=== PATIENT | male | born 1945 | race Caucasian/White ===

== ENCOUNTER 2019-11-06 06:54 | Day surgery (SDC) | payer MEDICARE, SELFPAY ==
[2019-11-03 14:47] VITALS: BMI 25.1
[2019-11-05 11:40] VITALS: BMI 25.1
--- NOTE | 2019-11-06 09:10 | CL.D_ITS ---
Patient Name: JESSICA KHAN Study Date: 11/06/2019 Performing: Noe Field MD Ht: 70.86 inches 180 cm : 1945 Wt: 180.78 lbs 82 kg Age: 74 Gender: male BSA: 2.02 PROCEDURE(S) PERFORMED ME19-ARD/COR/LV NB19-TTI, CORONARY OR GRAFT, INITIAL VESSEL CLINICAL PROFILE AND INDICATIONS Indications: Suspected CAD Heart Failure: None Stress/Imaging Date: 10/13/2019Stress Test with SPECT MPI: Negative CAD Presentations: Unstable angina. CONCLUSIONS Severe coronary calcification involving the left anterior descending artery, and right coronary arter y. There is moderately severe disease noted in the proximal left anterior descending artery and mini mal disease noted in the circumflex artery and an ectatic right coronary artery RECOMMENDATIONS Staged for FFR DESCRIPTION OF PROCEDURE The patient arrived to the procedure lab. The risks and benefits of the procedure as well as a full d escription of our services here and current unavailability of surgical backup were fully explained to the patient and/or their significant other prior to the catheterization. The Timeout was completed, verifying the correct patient and procedure. The patient's procedural site was prepped and draped in the usual fashion. Local anesthetic was given subcutaneously to right radial region with Lidocaine 2% . Local anesthetic was given subcutaneously to right groin region with Lidocaine 2%. Using a modified Seldinger technique, arterial access was obtained via the right radial artery, a 6Fr sheath was inse rted. Right Coronary Artery selective angiography was then performed in multiple views using a 5 Fr. 4.0 [place] catheter. Left Coronary Artery selective angiography was performed in multiple views using a 5 Fr. 4.0 [place] catheter. Left Ventriculography was performed in SANZ projection using a 5 Fr. Pigtail catheter. LV to AO pullback pressures were then recorded. CORONARY ANGIOGRAPHY DOMINANCE: Right Dominant LEFT HEART ASSESSMENT Left Ventricular Ejection Fraction: by LV Gram 60 % Normal LV wall motion Normal Left Ventricular systolic function LEFT MAIN: Mild calcification LEFT ANTERIOR DESCENDING ARTERY: PROX LAD: Moderate calcification, Diffusely diseased up to 70 % MID LAD: Long area of stenosis after the large diagonal branch and a tapering vessel to approximately 70% CIRCUMFLEX ARTERY: Mild luminal irregularities less than 30% RIGHT CORONARY ARTERY: Mild luminal irregularities less than 30% Ectatic COMPLICATIONS PROCEDURE MEDICATIONS Fentanyl 50 mcg IV Versed 1 mg IV Oxygen: 2 L/min via nasal cannula Heparin diluted in 23cc Heparinized saline. Patient given 5cc IA of this solution. 11/06/2019 08:37:43 Verapamil 2.5mg, Ntg 100mcgs, 2000 units of Heparin diluted in 23cc Heparinized saline. Patient give n 5cc IA of this solution. 11/06/2019 08:37:43 IV Fluids: .9 NaCl increased to WO ml/hr 11/06/2019 08:42:31 SUMMARY OF HEMODYNAMIC DATA Time AIR REST ECG 07:24:33 AO 77/53 (65) SA 08:39:41 LV 92/-5, 0 08:48:12 LV 85/-4, 0 08:48:18 LV 101/-12, 2 08:49:15 LVp 98/-13, 0 08:49:19 AOp 100/40 (63) 08:49:24 Signed By Noe Field MD On 11/06/2019 9:09:26 AM Noe Field MD
[2019-11-06 09:30] LABS: ACT Activated Clotting Time 235 sec (74-137)
[2019-11-06 12:01] LABS: ACT Activated Clotting Time 131 sec (74-137)
--- NOTE | 2019-11-06 12:06 | CL.I_ITS ---
Patient Name: JESSICA KHAN Study Date: 11/06/2019 Performing: Camilo Blanca MD Ht: 70.86 inches 180 cm : 1945 Wt: 180.78 lbs 82 kg Age: 74 Gender: male BSA: 2.02 PROCEDURE(S) PERFORMED [id number], CORONARY OR GRAFT, INITIAL VESSEL CLINICAL PROFILE AND CO-MORBIDITIES Indications: Suspected CAD, New Onset Angina <= 2 months, Suspected CAD, Other, coronary calcium score of 2000. Heart Failure: None Stress/Imaging Date: 10/13/2019 Stress Test with SPECT MPI: Negative Angina Classification Anginal Classification w/in 2 Weeks: Anginal Equivalent Dyspnea CAD Presentations: Unstable angina. Unstable angina. Comorbidities/Risk Factors: Hypertension Dyslipidemia CONCLUSIONS FFR eval with adenosine augmentation of proximal LAD=0.86; no PCI recommended or performed today. RECOMMENDATIONS Highly recommend quitting all tobacco products Follow up with primary rover tender Risk factor modification ASA Indefinitley Plavix for at least 12 months Routine post interventional care Refer for Outpatient Cardiac Rehab Manual sheath removal per protocol Manual sheath removal. Would consider PCI of proximal LAD if pt has ongoing dyspnea on exertion or worsening exercise capaci ty despite maximal medical therapy. D/w Dr Field and Cathleen Jefferson. Manual sheath removal of RFA and R radial once ACT<170. DESCRIPTION OF PROCEDURE The patient arrived to the procedure lab. The risks and benefits of the procedure as well as a full d escription of our services here and current unavailability of surgical backup were fully explained to the patient and/or their significant other prior to the catheterization. The Timeout was completed, verifying the correct patient and procedure. The patient's procedural site was prepped and draped in the usual fashion. Local anesthetic was given subcutaneously to right radial region with Lidocaine 2% . Local anesthetic was given subcutaneously to right groin region with Lidocaine 2% Using a modified Seldinger technique,arterial access was obtained via the right radial artery, a 6Fr sheath was insert ed., arterial access was obtained via the right femoral artery, a 6Fr sheath was inserted. Right Shania nary Artery selective angiography was then performed in multiple views using a 5 Fr. 4.0 [place] cathet er. Left Coronary Artery selective angiography was performed in multiple views using a 5 Fr. 4.0 [place] catheter. Left Ventriculography was performed in SANZ projection using a 5 Fr. Pigtail c atheter. LV to AO pullback pressures were then recorded.The images were reviewed and options discusse d. A decision was then made to proceed with an Intervention, IVUS or other adjunct procedure. EBU 3.5 Guide catheter was inserted and engaged into the LCA. The FFR/iFR wire was inserted. Philippe osine was then given per protocol. Pressures and FFR/iFR were then recorded. FFR Ratio Baseline: 1.0 FFR Ratio post Adenosine: 0.86 The FFR/iFR wire was then removed. The arterial sheath was pulled an d a TR Band was applied for hemostasis Air 11. The femoral arterial sheath was sutured in place and c apped INTERVENTION INFORMATION LESION SITE: LAD (Mid) Lesion Complexity: High/C, lesion at bifurcation: No, thrombus present: No, lesion length: 24 mm, cul prit lesion: Yes Pre Stenosis: 65 % Pre intervention SELVIN flow: 3 PROCEDURE: FFR Post Stenosis: 65 % Post intervention SELVIN flow: 3 Lesion Devices: [employer] ( [facility] [place]) Coronary FFR Wire [employer]ogg Mobiletronic 6 Fr EBU3.5 100cm Guide Catheter COMPLICATIONS No Complications PROCEDURE MEDICATIONS Fentanyl 50 mcg IV Versed 1 mg IV Oxygen: 2 L/min via nasal cannula Adenosine drip for FFR 23 ml IV @ 11/06/2019 09:17:33 Heparin diluted in 23cc Heparinized saline. Patient given 5cc IA of this solution. 11/06/2019 08:37:43 Heparin 6000 unit(s) IV 11/06/2019 09:07:30 Nitro 200 mcg IC 11/06/2019 09:10:38 Verapamil 2.5mg, Ntg 100mcgs, 2000 units of Heparin diluted in 23cc Heparinized saline. Patient give n 5cc IA of this solution. 11/06/2019 08:37:43 IV Fluids: .9 NaCl increased to WO ml/hr 11/06/2019 08:42:31 SUMMARY OF HEMODYNAMIC DATA Time AIR REST ECG 07:24:33 AO 77/53 (65) SA 08:39:41 LV 92/-5, 0 08:48:12 LV 85/-4, 0 08:48:18 LV 101/-12, 2 08:49:15 LVp 98/-13, 0 08:49:19 AOp 100/40 (63) 08:49:24 AO 103/51 (69) 09:10:03 AO 79/45 (60) 09:12:45 Signed By Camilo Blanca MD On 11/06/2019 12:05:28 Signed By Camilo Blanca MD On 11/06/2019 12:05:08 Camilo Blanca MD
[2019-11-06 15:30] VITALS: BP 101/61; PULSE 61; RESP 18; TEMP 36.4; O2SAT 96
[2019-11-06 16:30] VITALS: BP 99/50; PULSE 62; RESP 18; TEMP 36.5; O2SAT 98
[2019-11-06 18:18] VITALS: PULSE 59
--- NOTE | 2019-11-06 19:05 | NURSING ---
Pt ambulated in the [place] with this RN no bleeding to cath sites or signs of complications.
== END 2019-11-06 19:15 | disposition home or self-care (01) ==
LOC: CLSP 09:21 → PCU 11-07 10:43
PROVIDERS: Referring Provider Internal Medicine Cardiovascular Disease; Visit Provider Internal Medicine Cardiovascular Disease
DX: I25.110 Atherosclerotic heart disease of native coronary artery with unstable angina pectoris (principal); E11.9 Type 2 diabetes mellitus without complications; I10 Essential (primary) hypertension; E78.5 Hyperlipidemia, unspecified; E03.9 Hypothyroidism, unspecified; M10.9 Gout, unspecified; F32.9 Major depressive disorder, single episode, unspecified; F41.9 Anxiety disorder, unspecified; R93.1 Abnormal findings on diagnostic imaging of heart and coronary circulation; R94.31 Abnormal electrocardiogram [ECG] [EKG]; Z79.82 Long term (current) use of aspirin; Z79.899 Other long term (current) drug therapy; Z85.038 Personal history of other malignant neoplasm of large intestine
CPT/HCPCS: 85347; 93458; 93571; 99152; 99153; J0153; J7040; Q9967; C1769; C1887; C1894

== ENCOUNTER → 2020-06-03 08:52 | Outpatient (CLI) | payer MEDICARE, SELFPAY ==
[2020-05-25 11:44] VITALS: BMI 23.7
--- NOTE | 2020-06-03 17:20 | PCM.TILTTABL ---
- Staff Staff: Barbra Pedersen - Summary Pre Test Resting HR: 56 Pre Test Resting BP: 131/71 Minimum Test HR: 49 Maximum Test HR: 86 Minimum Test BP: 0/0 Maximum Test BP: 133/79 Physician Tilt Table Report - Patient's Physicians Primary Care Physician: ARACELI LARA Indications/Diagnosis: Recurrent presyncope Procedure Comments: The patient was brought to the noninvasive lab in the postabsorptive nonsedated state. The patient was placed on the tilt table and an EKG was obtained. The baseline heart rate was 56 bpm with a baseline blood pressure 131/71 mmHg. Vitals were noted to be stable and the appearance was normal. The patient was then placed in the 70 degree upright tilt position for 20 minutes. Continuous EKG monitoring as well as blood pressure and pulse recordings were undertaken. There were no changes in the patient's affect, color, and vitals. The patient was then placed back in the recumbent position and administered 0.4 mg of sublingual nitroglycerin. The patient was then placed in the head upright tilt position. After approximately 8 minutes the patient was noted to have started dropping his blood pressure as well as the heart rate. Blood pressure was then unrecordable with a heart rate dropping to 49 bpm with the patient being lightheaded, losing consciousness, and being clammy. He was immediately placed in the recumbent position given intravenous fluids. Patient recovered well. Postprocedure vitals were heart rate of 57 bpm blood pressure 123/67 mmHg. EKG demonstrated sinus bradycardia. Summary: Head upright tilt tested demonstrating likely vasodepressor syncope. Will recommend discontinuation of losartan at this time. Above discussed with patient. Liberalized fluid as well as support stockings.
[2020-06-03 17:25] VITALS: BP 0/0; BP 131/71; BP 133/79
== END ==
PROVIDERS: Referring Provider Internal Medicine Cardiovascular Disease; Visit Provider Internal Medicine Cardiovascular Disease
DX: R42 Dizziness and giddiness (principal)
CPT/HCPCS: 93660; J7040; A4216

== ENCOUNTER 2020-10-29 06:30 | Day surgery (SDC) | payer MEDICARE, SELFPAY ==
[2020-05-25 11:44] VITALS: BMI 23.7
--- NOTE | 2020-10-27 11:02 | PCM.HP.BLA ---
History and Physical Date of Admission: 10/29/20 Pleasant 75-year-old man with a history of diabetes mellitus, hyperlipidemia, and coronary artery disease. You do remember that he had been feeling unwell and was experiencing chest discomfort described as a heaviness with exertion he underwent a CT scan which demonstrated a calcium score of over 2000 and subsequently underwent a stress test which was normal at 10 metabolic equivalents. An echocardiogram previously performed in August 2019 was noted to be normal. He underwent a cardiac catheterization which demonstrated moderate disease in the proximal to mid left anterior descending artery. Fractional flow reserve was noted to be normal and therefore medical therapy was undertaken. He was put on a beta-rashmi as well as cholesterol medication. He did not tolerate either of these and both were discontinued. More recently, patient was out walking and noted new chest heaviness. This improved with rest. This did not radiate. This was not associated with shortness of breath, nausea, or diaphoresis. However, he acknowledges that this was the worst he has ever felt The following day he was walking his dog and noted bilateral arm numbness and that he could not walk as far given how he felt. He does acknowledge chest heaviness that comes and goes at rest as well. He continues to acknowledge dizziness with position changes. He denies any shortness of breath, presyncope, syncope, edema, claudication, orthopnea, PND, or cough He has been intolerant to statin medications previously. He is also intolerant to isosorbide, metoprolol, and lisinopril as well. His most recent lipid panel showed an LDL of 137, total cholesterol of 212, and HDL of 48. His most recent hemoglobin A1c was noted be 7.3%. Intake Intake Visit Reasons: [facility] Allergies cyclobenzaprine [From Flexeril] Allergy (Verified 05/25/20 10:30) unkown atorvastatin Adverse Reaction (Verified 05/25/20 10:30) myalgias, elevated A1C isosorbide Adverse Reaction (Verified 05/25/20 10:30) neuropathy lisinopril Adverse Reaction (Verified 05/25/20 10:30) neuropathy Vital Signs: See EMR Medications: See EMR Ejection fraction %: 55 to 59 [facility] Medical History (Updated 10/27/20 @ 10:25 by Smith Cosby C[facility] OCCUPATIONAL THERAPY ASST, CERT OCCUPATIONAL THERAPY ASST-C) Atherosclerosis of coronary artery of [place] heart without angina pectoris (Chronic) Hyperlipidemia (Chronic) Colon cancer (Resolved) Abnormal electrocardiogram (Chronic) Anxiety and depression (Chronic) Gout (Chronic) Hypogonadism in male (Chronic) Lumbar radiculopathy (Chronic) Type 2 diabetes mellitus (Chronic) Hypothyroidism (Resolved) Nephrolithiasis (Resolved) Essential (primary) hypertension (Ruled-out) Elevated coronary artery calcium score (Inactive) Surgical History History of appendectomy (Resolved 2003) History of back surgery (Resolved) History of colectomy (Resolved 2003) History of eye surgery (Resolved) History of left heart catheterization (Resolved 11/06/19) Family History Other Breast cancer Diabetes Social History (Updated 10/27/20 @ 10:27 by Smith Cosby NP, CERT OCCUPATIONAL THERAPY ASST-C) Smoking Status: Never smoker alcohol intake: never ROS Const Const: Positive for fatigue; negative for weakness, body ache, fever(s) or chills ENT ENT: Positive for dizziness Cardio Chest Pain: Yes Palpitations: No Edema: None Muscle aches with walking: None Resp Respiratory: Negative for SOB with activity, SOB at rest, SOB orthopnea\SOB lying down or paroxysmal nocturnal dyspnea GI GI: Negative nausea, vomiting blood/hematemesis, bright, red blood in stools or black,tarry stools : Negative for hematuria or frequent nighttime urination/ nocturia Musc Musc: Negative for muscle aches/ myalgia Skin Skin: Negative non-healing lesions or rash Neuro Neuro: Positive for dizziness; negative for lightheadedness, near syncope, syncope, orthostatic symptoms or weakness Endo Endo: Positive for fatigue Allergy Allergy/Immunology: Negative for rash Cardiology Exam Const Appearance: cooperative, healthy appearing, comfortable and no acute distress Nutritional Appearance: average body habitus and well nourished Orientation: alert, awake and oriented x3 Head Head: normal to inspection Ears: hearing grossly normal bilaterally Nose: external nose normal Face and Sinus: face symmetric Mouth: oral mucosae normal Eyes General: appearance normal, both eyes and all related structures Eyelids: eyelids normal EOM: EOM intact bilaterally Neck Neck: normal visual inspection and no JVD Carotids: normal carotid upstroke Chest Chest inspection: normal inspection of the chest, symmetric chest movement and normal respiratory effort; negative cough Auscultation: Bilateral: Clear to Auscultation Cardio Rate: regular rate Rhythm: regular rhythm Heart sounds: S1 normal and S2 normal; negative rub, gallop or murmur GI GI: normal to inspection Neuro General: alert, awake, oriented x3 and CN's II-XI intact bilaterally Skin Skin: no rashes or lesions noted Extremities Pulses: Normal: Right Posterior Tibial Pulse, Left Posterior Tibial Pulse, Right Radial Pulse, Left Radial Pulse Lower Extremity Edema: None: Bilateral Psych Psychological: normal affect Cardiology Exam Const Appearance: other (Deferred due to phone/virtual visit.) Assessment & Plan 1. Atherosclerosis of [place] coronary artery of [place] heart without angina pectoris I25.10 Plan Patient's heart catheterization in November 2019 showed proximal LAD and mid LAD with 70% stenosis. His FFR evaluation was noted be 0.86. Medical therapy was recommended. Patient symptoms are concerning for progressive coronary artery disease in the setting of multiple risk factors including diabetes and hyperlipidemia. He was agreeable to proceed with heart catheterization to assess further. Based on results, further recommendation will be made. Patient has been intolerant to cardiac medications previously. Thus, we will not initiate beta-rashmi or statin medication on account of previous intolerance. He will continue with aspirin and losartan. 2. Hyperlipidemia, unspecified hyperlipidemia type E78.5 Plan His most recent lipid panel was reviewed and is less than ideal. He was reminded of the importance of risk factor and lifestyle modification. This will have to be addressed on an ongoing basis with possible consideration for alternative therapy such as Repatha as he had been intolerant to statin and nonstatin cholesterol-lowering medication previously. Supplemental Info Supplemental Information Cardiac catheterization from 11/06/2019: CONCLUSIONS Severe coronary calcification involving the left anterior descending artery, and right coronary artery. There is moderately severe disease noted in the proximal left anterior descending artery and minimal disease noted in the circumflex artery and an ectatic right coronary artery RECOMMENDATIONS Staged for FFR CORONARY ANGIOGRAPHY DOMINANCE: Right Dominant LEFT HEART ASSESSMENT Left Ventricular Ejection Fraction: by LV Gram 60 % Normal LV wall motion Normal Left Ventricular systolic function LEFT MAIN: Mild calcification LEFT ANTERIOR DESCENDING ARTERY: PROX LAD: Moderate calcification, Diffusely diseased up to 70 % MID LAD: Long area of stenosis after the large diagonal branch and a tapering vessel to approximately 70% CIRCUMFLEX ARTERY: Mild luminal irregularities less than 30% RIGHT CORONARY ARTERY: Mild luminal irregularities less than 30% Ectatic FFR evaluation from 11/06/2019: CONCLUSIONS FFR eval with adenosine augmentation of proximal LAD=0.86; no PCI recommended or performed today. Tilt table test from 06/03/2020: Summary: Head upright tilt tested demonstrating likely vasodepressor syncope. Will recommend discontinuation of losartan at this time. Above discussed with patient. Liberalized fluid as well as support stockings. Procedure Criteria Procedure Type: Elective COVID Risk Discussion: The surgeon/proceduralist and patient have discussed in detail the risk of exposure to and/or potential harm posed by the COVID-19 virus with having a surgery/procedure at this time versus the risk of delaying the surgery/procedure. It is not possible to know either the risk of delaying the surgery or procedure or chance of getting an infection with perfect accuracy, but a joint decision was made between the patient and the surgeon/proceduralist to proceed at this time with the scheduled surgery/procedure as indicated on the consent form.
[2020-10-28 07:50] VITALS: BMI 25.9
--- NOTE | 2020-10-29 07:08 | CT_ITS ---
STUDY: CT CHEST WITH CONTRAST REASON FOR EXAM: Male, 75 years old. LUNG MASS? CAD AND PRIOR COLON CANCER RADIATION DOSAGE (If Supplied By Facility): CTDIvol = ( 17.03 ) mGy, DLP = ( 399.27 ) mGycm TECHNIQUE: Transaxial imaging was performed following intravenous administration of IV 60mL Isovue-300. Multiplanar coronal and sagittal images were reformatted. Individualized dose optimization techniques were used for this CT. COMPARISON: Comparison is made with prior outside examination dated 09/30/2019. FINDINGS: There is a 1.5 cm x 1.2 cm well-defined nodule in the anterior medial aspect of the left upper lobe abutting the anterior thorax. This has increased in size as compared to prior study. There is no demonstrated pleural abnormality. There are calcifications of the coronary arteries. There are multiple small lymph nodes within the mediastinum, which are normal in size and morphology most compatible with reactive lymph hyperplasia. Normal hilar regions. Normal enhanced pulmonary arteries. Normal aorta arch and descending thoracic aorta. Minimal loss of height of the superior endplate of a lower dorsal vertebrae. Small hiatal hernia. CT/Chest WITH Contrast IMPRESSION: 1.5 cm x 1.2 cm well-defined nodule in the anterior medial aspect of the left upper lobe abutting the anterior bony thorax. This has increased in size as compared to prior study. A biopsy is recommended. Coronary artery calcification. Electronically Signed: Salbador Maier MD at 8:23 EST , Service support ,
--- NOTE | 2020-10-29 08:48 | CL.D_ITS ---
Patient Name: JESSICA KHAN Study Date: 10/29/2020 Performing: Noe Field MD Ht: 70.86 inches 180 cm : 1945 Wt: 185.19 lbs 84 kg Age: 75 Gender: male BSA: 2.04 PROCEDURE(S) PERFORMED AF71-[id number]/COR/LV CLINICAL PROFILE AND INDICATIONS Indications: Suspected CAD Heart Failure: None Stress/Imaging Stress/Image Study Performed: No Angina Classification Anginal Classification w/in 2 Weeks: Anginal Equivalent Dyspnea CONCLUSIONS Calcified left anterior descending artery with approximately 70% proximal to mid stenosis. Mild dise ase noted in the circumflex artery and the right coronary artery. RECOMMENDATIONS We will plan for biopsy of the lung nodule. Then after that would consider PCI of the proximal to mi d LAD. DESCRIPTION OF PROCEDURE The patient arrived to the procedure lab. The risks and benefits of the procedure as well as a full d escription of our services here and current unavailability of surgical backup were fully explained to the patient and/or their significant other prior to the catheterization. The Timeout was completed, verifying the correct patient and procedure. The patient's procedural site was prepped and draped in the usual fashion. Local anesthetic was given subcutaneously to right radial region with Lidocaine 2% . Using a modified Seldinger technique, arterial access was obtained via the right radial artery, a 6 Fr sheath was inserted. Left Coronary Artery selective angiography was performed in multiple views u sing a 5 Fr. 4.0 [place] catheter. Right Coronary Artery selective angiography was then performed in mu ltiple views using a 5 Fr. 4.0 [place] catheter. Left Ventriculography was performed in SANZ projection using a 5 Fr. [place] catheter. LV to AO pullback pressures were then recorded.The arterial sheath was pulled and a TR Band was applied for hemostasis 13cc air CORONARY ANGIOGRAPHY DOMINANCE: Right Dominant LEFT HEART ASSESSMENT Left Ventricular Ejection Fraction: by LV Gram 60 % Normal LV wall motion Normal Left Ventricular systolic function LEFT MAIN: Mild calcification LEFT ANTERIOR DESCENDING ARTERY: PROX LAD: Moderate calcification MID LAD: 70 % Stenosis DIAGONAL 1: Proximal - Mild calcification CIRCUMFLEX ARTERY: Mild luminal irregularities less than 30% RIGHT CORONARY ARTERY: Mild luminal irregularities less than 30% RT PLV: Moderate luminal irregularities up to 50% COMPLICATIONS No Complications PROCEDURE MEDICATIONS Fentanyl 50 mcg IV Versed 1 mg IV Versed 1 mg IV Oxygen: 2 L/min via nasal cannula Heparin diluted in 23cc Heparinized saline. Patient given 10cc IA of this solution. 10/29/2020 08:18: 04 Verapamil 2.5mg, Ntg 100mcgs, 2000 units of Heparin diluted in 23cc Heparinized saline. Patient give n 10cc IA of this solution. 10/29/2020 08:18:04 SUMMARY OF HEMODYNAMIC DATA Time AIR REST ECG 07:06:56 AO 111/67 (88) SA 08:19:04 LV 129/1, 10 08:28:53 LV 121/1, 7 08:28:58 LV 131/3, 10 08:29:49 LVp 132/3, 6 08:29:52 AOp 123/59 (86) 08:29:57 ECG 08:42:46 Signed By Noe Field MD On 10/29/2020 08:47:19 Noe Field MD
== END 2020-10-29 13:10 | disposition home or self-care (01) ==
PROVIDERS: PCP Internal Medicine; Referring Provider Internal Medicine Cardiovascular Disease; Visit Provider Internal Medicine Cardiovascular Disease
DX: I25.10 Atherosclerotic heart disease of native coronary artery without angina pectoris (principal); R91.1 Solitary pulmonary nodule; E11.9 Type 2 diabetes mellitus without complications; E78.5 Hyperlipidemia, unspecified; M10.9 Gout, unspecified; Z79.82 Long term (current) use of aspirin; Z79.4 Long term (current) use of insulin; Z79.899 Other long term (current) drug therapy
CPT/HCPCS: 71260; 93458; 99152; 99153; J7040; Q9967; A4216; C1769; C1894

== ENCOUNTER → 2020-11-02 08:47 | Outpatient (CLI) | payer MEDICARE, SELFPAY ==
[2020-10-28 07:50] VITALS: BMI 25.9
--- NOTE | 2020-11-01 13:51 | NURSING ---
lab work drawn at [facility] on 10/27/20 plt 238, will not repeat, will need to draw inr and pt /ptt on arrival tomorrow for biopsy
[2020-11-02] VITALS (11 sets, daily range): BP systolic 113–155; BP diastolic 60–87; PULSE 51–68; RESP 12–21; TEMP 36.5; O2SAT 14–100; BMI 24.4
--- NOTE | 2020-11-02 09:03 | CT_ITS ---
PROCEDURE: CT GUIDED CORE NEEDLE BIOPSY OF A PROCEDURE: CT GUIDED CORE NEEDLE BIOPSY OF A left upper lobe LUNG LESION INDICATION: Male, 75 years old. LEFT LUNG MASS PHYSICIAN: Dr. TUAN Aragon CONSENT: Written informed consent was obtained having explained the risks, benefits and alternatives in detail with the patient who accepted the risks and agreed to proceed. Laboratory review and clinical assessment was performed. CONSCIOUS SEDATION PROTOCOL: The Drugs used were: 2 mg Versed, IV., and 50 mcg Fentanyl, IV. The sedation time was: 29 minutes. Conscious sedation was started at 9:51 AM and terminated at 10:20 AM. The conscious sedation protocol was independently monitored. RADIATION DOSAGE (If Supplied By Facility): CTDIvol = ( 18 ) mGy, DLP = ( 521.51 ) mGycm Individualized dose optimization techniques were used for this CT. TECHNIQUE: The patient was placed in the supine position. A noncontrast CT was performed to localize the lesion in the anterior left upper lobe . The skin surface was prepped and draped in a sterile fashion. 1% lidocaine was used for local anesthesia. Using CT guidance, a 20-gauge coaxial biopsy device was advanced to the periphery of the lesion. A total of 4 core specimens were obtained. The specimens were placed in a formalin solution. A post procedure CT demonstrated no adverse sequelae or pneumothorax. The patient tolerated the procedure well without adverse event. A negative biopsy does not exclude malignancy. Further imaging or clinical followup based on patient condition and degree of clinical suspicion for malignancy. Suggest rebiopsy, if biopsy results do not match with clinical scenario. CT/Biopsy/Inj or Needle Placement IMPRESSION: 1. CT directed core needle biopsy of the left upper lobe nodule using CT image guidance with image documentation as described. Pathology results are pending. 2. Conscious Sedation protocol utilized with independent monitoring. Electronically Signed: Salbador Maier MD at 10:50 EST , Service support ,
[2020-11-02 09:26] LABS: Prothrombin Time (Protime)PT. 12.5 SECONDS (11.7-14.9)
[2020-11-02] MEDS: Midazolam 2 MG/2 ML Syringe IV (09:51)
[2020-11-02] MEDS: fentaNYL 100 MCG/2 ML Ampul IV (09:52)
--- NOTE | 2020-11-02 10:15 | ASPIGT_PTH ---
PATIENT: JESSICA KHAN LOC: [place] U#:[id number] AGE/SX: 79/M ROOM: RE11/02/[address]: Dr. Noe Field MD : 1945 BED: DIS: SPEC #: [id number] RECD: 11/02/20 10:30 STATUS: JAMMIE REPravin #: [id number] CARLY: 11/02/20 10:[address]: Noe Field DEPT: SURGICAL PATHOLOGY RECD BY: Nay Ureña ENTERED: 11/02/20 13:57 SP TYPE: ASP RAD OTHR DR: Dr. Matthew Munoz MD Tissues: Lung, NOS Procedures: FNA Specimen Adequacy Special Stain Group II Surgery Specimen Level IV Imprint (control) HEADER OPERATION: CT-guided left lung mass PRE-OP DIAGNOSIS: Left lung mass TISSUE SUBMITTED: CT-guided left lung mass x4 cores MICROSCOPIC DIAGNOSIS Left lung mass, CT-guided core biopsy: Negative for malignant cells. See comment. AM:puneet 11/03/2020 COMMENT The specimen is evaluated at the time of biopsy by Dr. Lao. Immediate Evaluation: Pass 1 - Negative for malignant cells. Pass 2 - Negative for malignant cells. The specimen contains rare fibrous tissue. Clinical correlation is suggested. MICROSCOPIC DESCRIPTION Slides are reviewed. GROSS DESCRIPTION Received in fixative is one container labeled with the patient's name and designated left lung biopsy. The specimen consists of multiple minute fragments of light enrique soft tissue that in aggregate measure 0.2 x 0.2 x 0.1 cm. The specimen is submitted for cell block preparation. Four touch imprints are prepared at the time of core biopsy. / AM:puneet 11/02/20 TC:5 CPT: 71411, 15814, 03271
--- NOTE | 2020-11-02 10:25 | RAD_ITS ---
STUDY: X-RAY CHEST REASON FOR EXAM: Male, 75 years old. INSPIRATION AND EXPIRATION FILMS IMMEDIATELY S/P LEFT LUNG BIOPSY TECHNIQUE: AP inspiration and expiration views. COMPARISON: None. FINDINGS: AP inspiration and expiration views were obtained. No evidence of pneumothorax on the immediate post left lung biopsy RAD/Chest Insp/Exp 2 View IMPRESSION: No evidence of pneumothorax on the immediate post left lung biopsy radiographs. Electronically Signed: Salbador Maier MD at 11:18 EST , Service support ,
--- NOTE | 2020-11-02 12:30 | RAD_ITS ---
STUDY: X-RAY CHEST REASON FOR EXAM: Male, 75 years old. 2 hrs post lung bx TECHNIQUE: AP inspiration and expiration views COMPARISON: Comparison is made with prior study done earlier today. FINDINGS: Status post left lung biopsy. No evidence of pneumothorax on the delayed images. RAD/Chest Insp/Exp 2 View IMPRESSION: No evidence of pneumothorax on the 2 hour post left lung biopsy radiographs. Electronically Signed: Salbador Maier MD at 13:30 EST , Service support ,
== END ==
PROVIDERS: PCP Internal Medicine; Referring Provider Internal Medicine Cardiovascular Disease; Visit Provider Internal Medicine Cardiovascular Disease
DX: R91.8 Other nonspecific abnormal finding of lung field (principal); I25.10 Atherosclerotic heart disease of native coronary artery without angina pectoris; E11.9 Type 2 diabetes mellitus without complications; E03.9 Hypothyroidism, unspecified; E78.5 Hyperlipidemia, unspecified; M10.9 Gout, unspecified; F32.9 Major depressive disorder, single episode, unspecified; F41.9 Anxiety disorder, unspecified; Z79.82 Long term (current) use of aspirin; Z79.4 Long term (current) use of insulin; Z79.899 Other long term (current) drug therapy; Z85.038 Personal history of other malignant neoplasm of large intestine
CPT/HCPCS: 32408; 36415; 71046; 77012; 85610; 85730; 88172; 88305; 88313; 99155; 99156; 99157; J7040; C2613

== ENCOUNTER 2020-11-10 07:46 | Day surgery (SDC) | payer MEDICARE, SELFPAY ==
[2020-11-02 09:14] VITALS: BMI 24.4
[2020-11-09 11:40] VITALS: BMI 25.9
[2020-11-10] VITALS (13 sets, daily range): BP systolic 106–138; BP diastolic 53–71; PULSE 53–60; RESP 18–20; TEMP 36.6–36.8; O2SAT 95–99
[2020-11-10] MEDS: 0.9% Normal Saline 1,000 ML 100 ML IV (10:35)
--- NOTE | 2020-11-10 10:45 | PCS.PANDOC ---
PANDEMIC DOCUMENTATION INITIATED: Date: 11/10/20 Time: 8868
--- NOTE | 2020-11-10 11:00 | EKG12_ITS ---
Test Reason : Blood Pressure : / mmHG Vent. Rate : 065 BPM Atrial Rate : 065 BPM P-R Int : 240 ms QRS Dur : 096 ms QT Int : 458 ms P-R-T Axes : 060 -21 050 degrees QTc Int : 476 ms Sinus rhythm with 1st degree A-V block Otherwise normal ECG When compared with ECG of 29-OCT-2020 07:01, MANUAL COMPARISON REQUIRED, DATA IS UNCONFIRMED Confirmed by MICHELLE BARCLAY, JERONIMO ([id number]), photographic editor AUSTIN VILLALTA ([id number]) on 11/12/2020 8:51:06 AM Referred By: Daryl Mendoza Confirmed By:IVAN MENDOZA MD
--- NOTE | 2020-11-10 12:26 | CL.I_ITS ---
Patient Name: JESSICA KHAN Study Date: 11/10/2020 Performing: Sayra Mendoza MD Ht: 71 inches 180 cm : 1945 Wt: 185.4 lbs 84 kg Age: 75 Gender: male BSA: 2.04 PROCEDURE(S) PERFORMED [id number] W OR WO PTCA, SINGLE CORONARY ARTERY CLINICAL PROFILE AND CO-MORBIDITIES Indications: Worsening Angina Heart Failure: None Stress/Imaging Stress/Image Study Performed: No CAD Presentations: Unstable angina. CONCLUSIONS Successful SOLEDAD to the pLAD RECOMMENDATIONS ASA Indefinitley Brilinta for at least 12 months Follow up with Dr. Field DESCRIPTION OF PROCEDURE The patient arrived to the procedure lab. The risks and benefits of the procedure as well as a full d escription of our services here and current unavailability of surgical backup were fully explained to the patient and/or their significant other prior to the catheterization. The Timeout was completed, verifying the correct patient and procedure. The patient's procedural site was prepped and draped in the usual fashion. Local anesthetic was given subcutaneously to right radial region with Lidocaine 2% . Using a modified Seldinger technique, arterial access was obtained via the right radial artery, a 6 Fr sheath was inserted.. 3.5 Guide catheter was inserted and engaged into the LCA. BMW Guide wire was advanced to the LAD. 3x15 Emerge Balloon catheter was inserted. Balloon catheter was advanced across lesion in the LAD, p roximal. PTCA balloon inflated at 6 atms for 12 secs. PTCA balloon inflated at 6 atms for 10 secs. An giogram performed post balloon dilatation. 3.5x28 Synergy Drug Eluting stent was inserted. Drug Eluti ng stent was advanced across the lesion in the LAD, proximal. Angiogram performed post stent deployme nt. 3.5x20 NC Emerge Balloon catheter was inserted. Balloon catheter was advanced across lesion in th e LAD, proximal. Angiogram performed post balloon dilatation. The arterial sheath was pulled and a T R Band was applied for hemostasis. 12cc of air INTERVENTION INFORMATION LESION SITE: LAD (Proximal) Lesion Complexity: High/C, chronic total occlusion: No, lesion at bifurcation: No, thrombus present: No, lesion length: 28 mm, culprit lesion: Yes, Previously treated lesion: No Pre Stenosis: 80 % Pre intervention SELVIN flow: 3 PROCEDURE: Drug Eluting Stent with pre and post dilatation Post Stenosis: 0 % Post intervention SELVIN flow: 3 Lesion Devices: Cardinal 6 Fr XB3.5 100cm Guide Catheter Souza .014 BMW Austin Straight 190cm Mayo Sci EMERGE MR 3.00x15 BALLOON Mayo Sci Synergy MR SOLEDAD 3.50x28 Mayo Sci NC EMERGE MR 3.50x20 BALLOON COMPLICATIONS No Complications PROCEDURE MEDICATIONS Fentanyl 50 mcg IV Versed 1 mg IV Oxygen: 2 L/min via nasal cannula Brilinta 180 mg PO @ 11/10/2020 10:09:02 Heparin 3000 unit(s) IV 11/10/2020 09:39:40 SUMMARY OF HEMODYNAMIC DATA Time AIR REST ECG 08:22:58 AO 93/58 (74) SA 09:40:46 AO 112/60 (82) 09:42:27 Signed By Sayra Mendoza MD On 11/10/2020 12:25:52 Sayra Mendoza MD
--- NOTE | 2020-11-10 13:40 | CRPHASE1_ITS ---
Patient Communication Former Patient:: Phase I PHII Cardiac Rehab Discussed with Patient:: Yes Guide to Cardiac Rehab Given to Patient:: Yes Cardiac Rehab Facility Choice List Given to Patient:: Yes Choice Program Other:: Communication Given to [facility]:: Daryl Mendzoa Refer Phase II Cardiac Rehab:: Yes Sessions:: 36 sessions - 3 days/wk, 12 weeks Cardiac Rehabilitation Info Cardiac Rehabilitation Program Information: Cardiac Rehabilitation is important for patients like you who are recovering from a heart problem. Cardiac rehabilitation programs are recognized as integral to the continued care of the patient with coronary heart disease. The cardiac rehabilitation program is designed to optimize a patient's physical, psychological, and social functioning. Health palliative care coordinator work in cardiac rehabilitation programs and assist you with getting the treatments you need to get stronger and healthier - like exercise, healthy eating habits, and medications. Cardiac rehabilitation has been show to help people with heart problems live longer and have better life enjoyment than people who do not go to cardiac rehabilitation. Please contact the Cardiac Rehabilitation Program at [facility] at in two weeks if you have not heard from them.
--- NOTE | 2020-11-10 13:42 | CRPH1.INSTRU ---
General Education CAD and cardiac anatomy and function:: Patient communicates acknowledgment, Family communicates acknowledgment Explanation of diagnoses and procedures:: Patient communicates acknowledgment, Family communicates acknowledgment Sign/Symptoms of NV:: Patient communicates acknowledgment, Family communicates acknowledgment Antiplatelet therapy: Patient communicates acknowledgment, Family communicates acknowledgment Proper use of NTG-SL: Patient communicates acknowledgment, Family communicates acknowledgment Emergency procedures and activation of EMS: Patient communicates acknowledgment, Family communicates acknowledgment Compliance of all prescribed medications: Patient communicates acknowledgment, Family communicates acknowledgment Dyslipidemia Patient Dyslipidemia Risk Factors Are:: Total Cholesterol, Triglycerides, HDL, LDL Recommendations Include:: Lipid profile not available, Reviewed NCEP/ATP guidelines, Therapeutic Lifestyle Change dietary guidelines Dyslipidemia Response Code:: Patient communicates acknowledgment, Family communicates acknowledgment Hypertension Recommendations Include:: BP <130/80 if diabetic, DASH dietary guidelines, Decrease/maintain normal body weight, Moderation of ETOH Hypertension:: Patient communicates acknowledgment, Family communicates acknowledgment Heart Disease Patient Heart Disease Risk Factors Are:: Previous cardiac event Recommendations Include:: Educated family members of their risk, Educated family members of importance of prevention of heart disease Heart Disease Response Code:: Patient communicates acknowledgment, Family communicates acknowledgment Diabetes Patient Diabetes Risk Factors Are:: Elevated blood sugars Recommendations Include:: Maintain fasting blood sugars 70-110 md/dL, Maintain HgbA1c of 6% or less, Monitor blood sugar as prescribed, Diabetic dietary guidelines, Decrease/maintain body weight Diabetes:: Patient communicates acknowledgment, Family communicates acknowledgment
[2020-11-10] MEDS: TICAGRELOR 90 MG TABLET PO (21:40)
[2020-11-10] MEDS: Ranolazine 500 MG Tablet PO (21:40)
[2020-11-10 23:06] LABS: Bedside Glucose 111 mg/dL (70-110)
[2020-11-11 03:00] VITALS: PULSE 56
[2020-11-11 03:20] VITALS: BP 107/50; PULSE 61; RESP 18; TEMP 36.7; O2SAT 97
[2020-11-11 05:23] LABS: Hemoglobin 14.9 g/dL (13.0-16.5); Mean Corp Hgb Conc 33.1 g/dL (32-36); Mean Corpuscular Hgb 29.8 pg (27.0-32.0); Mean Platelet Vol. 9.5 fl (6.2-12.0); Platelet Count 183 K/mm3 (150-450); RBC Distribution Width CV 12.9 % (11.6-14.6); RBC Distribution Width SD 42.5 fl (35.1-43.9); White Blood Count 4.2 K/mm3 (4.4-11.0)
[2020-11-11 07:02] VITALS: PULSE 58
[2020-11-11 07:55] VITALS: BP 125/72; PULSE 53; RESP 18; TEMP 36.5; O2SAT 97
[2020-11-11] MEDS: Levothyroxine 25 MCG TABLET PO (07:57)
[2020-11-11] MEDS: TICAGRELOR 90 MG TABLET PO (07:57)
[2020-11-11] MEDS: Ranolazine 500 MG Tablet PO (07:57)
[2020-11-11] MEDS: Empagliflozin 25 MG Tablet PO (07:57)
[2020-11-11] MEDS: Multivitamins,Ther W-Minerals Tablet 1 TABLET PO (07:57)
[2020-11-11] MEDS: Losartan Potassium 25 MG Tablet 12.5 MG PO (07:57)
[2020-11-11] MEDS: Aspirin E.C. 81 MG Tablet PO (07:57)
[2020-11-11] MEDS: LINAGLIPTIN 5 MG TABLET PO (07:57)
--- NOTE | 2020-11-11 07:59 | NURSING ---
Patient requesting to take all of his medications at this time, states this is what he does at home at this time
[2020-11-11 08:05] LABS: Bedside Glucose 124 mg/dL (70-110)
--- NOTE | 2020-11-11 08:18 | PCM.PN.CARD ---
Subjectve: Patient seen and evaluated. Appears to be doing well. No chest pain overnight. Objective: Vital Signs Temp Pulse Resp BP Pulse Ox 97.7 F L 53 L 18 125/72 H 97 11/11/20 07:55 11/11/20 07:55 11/11/20 07:55 11/11/20 07:55 11/11/20 07:55 Oxygen Flow Rate (L/min) 2 Oxygen Delivery Method Room Air Weight: 185 lb Body Mass Index (BMI) 25.9 Intake and Output for Last 24 Hours 11/09/20 11/10/20 11/11/20 23:59 23:59 23:59 Intake Total 1721.67 / 1721.67 0 / 0 Balance 1721.67 / 1721.67 0 / 0 General: Awake, Alert, Oriented x 3 HEENT: PERRL, EOMI, Sclera Non Icteric Neck: Supple, Good ROM, No Lymph Node Enlargement Lungs: Clear to auscultation Cardiovascular: Regular Rhythm, Normal S1, Normal S2, No Murmurs, No Rubs, No Gallops Vascular: No Carotid Bruits, Normal Femoral Pulses, Normal Radial Pulses, Normal Dorsalis Pedal Pulse, Normal Posterior Tibial Pulses Abdomen: Bowel Sounds Present, Soft, Non Tender, No HSM, No Organomegaly Extremities: No Cyanosis, No Clubbing, No edema Neurological: No Focal Motor or Sensory Deficit 11/11/20 05:18: WBC 4.2 L, RBC 5.00, Hgb 14.9, Hct 45.0, MCV 90.0, MCH 29.8, MCHC 33.1, Plt Count 183, MPV 9.5 Rhythm: EKG: ECHO: Stress Test: Cardiac Cath: PCI: CT Surgery: Holter monitor: EPS: PPM: CXR: Chest CT Scan: Medical Necessity - Tobacco Use Smoking Status: Never smoker Assessment/Plan 1. Status post angioplasty and stenting of the proximal LAD. Patient did well overnight. Would recommend continuing current medical therapy with Brilinta. Office will contact for cardiac rehabilitation.
--- NOTE | 2020-11-11 08:24 | DCINST_ITS ---
Discharge Diet: No Restrictions - You may continue your normal diet. Lifting Restrictions: 10 pounds and also avoid any pushing or pulling for 3 days after your test. Additional Activity Instructions:: You must have someone drive you home. Do not drive until instructed by your doctor. You must have someone stay with you all night after your test. Rest in bed or on the couch until the next morning. Limit the number of times you go up and down stairs the day of your test. Apply pressure to the puncture site if you sneeze or cough. Call your doctor if your incision/area has: Increased Pain/ Swelling, Increased Redness, Foul Smelling Discharge, Swelling at the incision site Call your doctor if you observe: Fever of 101 or Higher Additional Dressing/Incision Instructions:: Keep the dressing (bandage) on until the next morning. You may then shower, but do not take a tub bath for 5 days after your test. It is normal to have some tenderness and discomfort at the puncture site. Sometimes bruising also occurs. However, if pain, numbness, or coldness occurs below the puncture site (in your leg, toes, arms or fingers) call your doctor at once. You may have a small, marble sized knot at the puncture site. This is normal. Do not rub it. It will go away in 4-6 weeks. Bleeding can occur from the area where the puncture was done. Blood may spurt or drip from the site. If blood spurts, apply pressure right away to stop bleeding and call 911. Although rare, bleeding into the tissue (hematoma) can also occur. If this happens, a large, firm area goose egg under the skin will appear. If any of these occur, lie down as flat as you can and have someone apply firm pressure to the cath site with a gauze pad or a clean washcloth for 10-15 minutes. Call 911 or go to the Emergency Department. Allergies/Adverse Reactions: Allergies cyclobenzaprine [From Flexeril] Allergy (Verified 11/09/20 10:39) unkown atorvastatin Adverse Reaction (Verified 11/09/20 10:39) myalgias, elevated A1C isosorbide Adverse Reaction (Verified 11/09/20 10:39) neuropathy lisinopril Adverse Reaction (Verified 11/09/20 10:39) neuropathy Medications to take at Discharge aspirin 81 mg tablet,delayed release 81 mg PO DAILY 11/03/19 cholecalciferol (vitamin D3) 25 mcg (1,000 unit) capsule 25 mcg PO DAILY 11/03/19 insulin glargine 100 unit/mL (3 mL) subcutaneous pen 10 unit SC QHS 02/25/20 nabumetone 750 mg tablet 750 mg PO BID PRN 05/25/20 losartan 25 mg tablet 12.5 mg PO DAILY tab 07/05/20 ranolazine 500 mg tablet,extended release,12 hr 500 mg PO BID #180 tab 07/06/20 nitroglycerin 0.4 mg sublingual tablet 0.4 mg SUBLINGUAL Q5-15M PRN #25 tab 10/26/20 Empagliflozin/Linagliptin [Glyxambi 25 mg-5 mg Tablet] 1 ea PO DAILY 11/02/20 Levothyroxine [Synthroid] 25 mcg PO DAILY 11/02/20 Multivit-Min/FA/Lycopen/Lutein [Centrum Silver Men Tablet] 1 ea PO DAILY 11/02/20 Ticagrelor [Brilinta] 90 mg PO BID #60 tab 11/11/20 The following prescriptions were given: Ticagrelor [Brilinta] 90 mg PO BID #60 tab Transmission Status: Pending to [id number] Primary Care Physician: Matthew Munoz MD [Primary Care Provider] - Test Results: Test results from this visit will be discussed in further detail at your follow- up appointment, if applicable. Please Follow Up With: My office will call for follow-up. Proposed Discharge Date: 11/11/20 Cardiac Rehabilitation Info Cardiac Rehabilitation Program Information: Cardiac Rehabilitation is important for patients like you who are recovering from a heart problem. Cardiac rehabilitation programs are recognized as integral to the continued care of the patient with coronary heart disease. The cardiac rehabilitation program is designed to optimize a patient's physical, psychological, and social functioning. Health daycare worker work in cardiac rehabilitation programs and assist you with getting the treatments you need to get stronger and healthier - like exercise, healthy eating habits, and medications. Cardiac rehabilitation has been show to help people with heart problems live longer and have better life enjoyment than people who do not go to cardiac rehabilitation. Please contact the Cardiac Rehabilitation Program at [facility] at in two weeks if you have not heard from them.
--- NOTE | 2020-11-11 08:55 | CASEMGMT ---
Addendum entered by Charis Stanley 11/11/20 09:22: Per Guillermina DINH, Cathleen Clark is at bedside talking with pt and pt will go on Brilinta for 30 days. Pt provided with 30 day free trial card at this time. Pt voices no further questions/concerns/needs at this time. Jimenez DINH CM Original Note: This RN CM to room with Brilinta 30 day free card at this time and pt states I don't need this, I am not going on this med now at this time. Pt then hands card back to this ALLEGRA NOVA. Pt states 'I am just going to stay on my plavix like before.' Guillermina DINH updated and states that Dr. Field called to her and stated pt will be on Brilinta for 30 days and that she gave him a dose this am. Guillermina DINH to f/u with pt regarding same. CM to follow. Jimenez DINH CM
[2020-11-11 09:17] VITALS: O2SAT 95
--- NOTE | 2020-11-11 10:00 | EKG12_ITS ---
Test Reason : AM Blood Pressure : / mmHG Vent. Rate : 056 BPM Atrial Rate : 056 BPM P-R Int : 248 ms QRS Dur : 090 ms QT Int : 466 ms P-R-T Axes : 048 002 035 degrees QTc Int : 449 ms Sinus bradycardia with 1st degree A-V block Otherwise normal ECG When compared with ECG of 10-NOV-2020 13:22, MANUAL COMPARISON REQUIRED, DATA IS UNCONFIRMED Confirmed by MICHELLE BARCLAY, JERONIMO ([id number]), video news editor AUSTIN VILLALTA ([id number]) on 11/12/2020 8:50:22 AM Referred By: Daryl Mendoza Confirmed By:IVAN MENDOZA MD
[2020-11-11 12:13] LABS: ALB/GLOB Ratio 1.1 RATIO (0.9-2.4); AST(SGOT) 13 U/L (15-37); Alanine Aminotransfer ALT/SGPT 23 U/L (16-61); Albumin, Serum 3.6 g/dL (3.2-5.0); Alkaline Phosphatase 88 U/L (45-117); Anion Gap 5 (5-15); BUN 18 mg/dL (7-18); BUN/Creat Ratio 15.7 RATIO (10-20); Calcium,Total 8.9 mg/dL (8.5-10.1); Chloride 107 mmol/L (98-107); Creatinine, Serum 1.15 mg/dL (0.70-1.30); EST Glomerular Filtration Rate 66 mL/min (>60); Est Glom Filt Rate - Afr Amer 80 mL/min (>60); Estimated Creatinine Clearance 59.07 ml/min; Globulin 3.2 g/dL (2.2-4.2); Glucose 118 mg/dL (74-106); Potassium 3.7 mmol/L (3.5-5.1); Protein, Total 6.8 g/dL (6.4-8.2); Sodium Level 139 mmol/L (136-145)
== END 2020-11-11 08:25 | disposition home or self-care (01) ==
LOC: CLSP 07:48 → PCU 11-11 08:47
PROVIDERS: PCP Internal Medicine; Referring Provider Specialist; Visit Provider Specialist
DX: I25.110 Atherosclerotic heart disease of native coronary artery with unstable angina pectoris (principal); E11.9 Type 2 diabetes mellitus without complications; E78.5 Hyperlipidemia, unspecified; M10.9 Gout, unspecified; F32.9 Major depressive disorder, single episode, unspecified; F41.9 Anxiety disorder, unspecified
CPT/HCPCS: 36415; 80053; 82962; 85027; 92928; 93005; 99152; 99153; J7030; Q9967; C1725; C1769; C1874; C1887; C1894; C9600